=== PATIENT | male | born 1980 | race Native Hawaiian/Other Pacific Islander ===

== ENCOUNTER 2021-07-05 09:51 | Emergency (ER) | payer OTHER ==
[~2021-07-05] VITALS: Ht 180.3 cm; Wt 102.1 kg
[2021-07-05 10:08] VITALS: BP 146/91; TEMP 97.6
== END 2021-07-05 10:47 | disposition home or self-care (01) ==
LOC: ED 09:51
DX: H65.192 Other acute nonsuppurative otitis media, left ear (principal); J40 Bronchitis, not specified as acute or chronic; F17.210 Nicotine dependence, cigarettes, uncomplicated
CPT/HCPCS: 99281

== ENCOUNTER 2021-08-14 10:05 | Emergency (ER) | payer OTHER ==
[~2021-08-14] VITALS: Ht 180.3 cm; Wt 103.4 kg
[2021-08-14 11:20] VITALS: BP 142/100; TEMP 99.5
== END 2021-08-14 11:20 | disposition home or self-care (01) ==
LOC: ED 10:05
DX: R07.89 Other chest pain (principal)
CPT/HCPCS: 93005; 96372; 99283; J1885; J2930